=== PATIENT | female | born 1995 | race Caucasian/White ===

== ENCOUNTER 2016-04-02 13:14 | Inpatient (IN) | payer OTHER ==
[2016-04-02] MEDS ORDERED: IV START KIT ONE (13:31)
[2016-04-02] MEDS ORDERED: LIDOCAINE 1% (PRES FREE) 30 ML VIAL ONE (13:31)
[2016-04-02] MEDS ORDERED: SODIUM CHLORIDE 0.9% FLUSH 10 ML ONE (13:31)
[2016-04-02] MEDS ORDERED: OXYTOCIN 10 UNITS/ML VIAL ONE (13:31)
[2016-04-02] MEDS ORDERED: MINERAL OIL 25 ML BOT ONE (13:31)
[2016-04-02] MEDS ORDERED: LIDOCAINE Viscous 2% 15 ML UDCUP ONE (13:31)
[2016-04-02] MEDS ORDERED: PUMP TUBING ONE (13:32)
[2016-04-02] MEDS ORDERED: OXYTOCIN IN LR 500 ML IV ONE ×3 (13:32→15:59)
[2016-04-02] MEDS ORDERED: LACTATED RINGERS 1,000 ML IV PRN ×2 (13:41→15:59)
[2016-04-02 15:20] VITALS: BMI 35.5
[2016-04-02] MEDS ORDERED: DOCUSATE SODIUM 100 MG CAPSULE PO PRN (15:59)
[2016-04-02] MEDS ORDERED: CALCIUM CARBONATE 500 MG TAB.CHEW PO PRN (15:59)
[2016-04-02] MEDS ORDERED: LANOLIN 50 APPLIC/7G TUBE TP PRN (15:59)
[2016-04-02] MEDS ORDERED: BENZOCAINE/MENTHOL 60 APPLIC/BOT TP PRN (15:59)
[2016-04-02] MEDS ORDERED: MAGNESIUM HYDROXIDE 30 ML UDCUP PO PRN (15:59)
[2016-04-02 16:21] LABS: HEMATOCRIT 33.5 % (37.0-47.0); HEMOGLOBIN 10.5 gm/l (12.0-16.0); MEAN CELL VOLUME 76.7 fl (81.0-99.0); MEAN CORPUSCULAR HGB CONC 31.3 g/dl (33.0-37.0); RED CELL DISTRIBUTION WIDTH 15.7 % (11.5-14.5)
[2016-04-02] MEDS: IBUPROFEN 800 MG TABLET PO SCH (18:08)
--- NOTE | 2016-04-02 18:37 | PCMAN ---
OB Admission Note - History : 2 Term: 1 : 0 Abortions (S&E): 0 Livin EDC:: 04/10/16 Gestational Age (weeks): 38 Days (#/7): 5 Admit Cervical Dilation:: 9 Admit Cervical Effacement (%):: 100 Admit Station:: -1 Admit Presentaton:: vertex Membrane Status: Intact Labor Onset (Date): 04/02/16 Labor Onset (Time): 09:00 Contractions: Yes Contraction Frequency:: 2 Status:: cat. I EFW:: 8lbs Summary of Course:: Onset to care at 10wks x 9 visits. TWG 16lbs. Complicated by PUPPS and Eczema. Hx with advance dilation on admit followed by prolonged second stage and PPH. Notified at [facility] that patient was enroute with regular painful contractions q 2- 3min. Desires unmedicated . - Labs Blood Type: A (+) positive Hct/Hgb:: 9.6 Rubella Status: Immune GBS Status: Negative - Review of Systems ROS neg, brief due to anticipated precipitous - Physical Exam General: Moderate Distress (active labor, 9cm) Lungs: Clear to Auscultation Bilaterally Cardiovascular: Regular Rate and Rhythm - Problems (1) Active labor at term Status: Acute Code: [id number] Assessment/Plan: Note late due to direct patient care, admit note delayed due to eminent delivery. A: with IUP at 38w6d Active labor, eminent membranes intact FHT cat. I GBS neg P: Admit ot [facility], saline lock and labs per hx PPH, and anticipate
--- NOTE | 2016-04-02 19:15 | PCMDEL ---
Delivery Note - Labor 1st stage (hr/min):: 4h45m 2nd stage (hr/min):: 0h4m 3rd stage (hr/min):: 0h5m Total (hr/min):: 4h54m Pushed (hr/min):: 0h4m - Delivery Delivery (Date): 04/02/16 Delivery (Time): 13:49 Gender: Male Weight: 8 lb 9 oz Length: 1 ft 9.5 in Position: OA Umbilical Cord: 3 Vessel Delayed Cord Clamping:: > 3 min 1 Minute Total: 9 5 Minute Total: 9 Placenta:: spontaneous, intact, juan, 3vc EBL:: 100ml Perineum:: intact Suture:: none Anesthesia/Meds:: none Length ROM:: 0h2m Comments:: Jillian arrived in active labor at 9cm, shortly followed by SROM for clear fluid, and within 2 contractions achieved of vigorous male over intact perineum. placed skin to skin for bonding and drying. Delayed cord clamping until cessation of pulsations, cord cut by FOB. AMTSL with IV pitocin initiated. Spontaneous delivery of intact placenta, juan, 3vc. Fundus firm midline at U. Hemostasis achieved. [id number]. mom and baby stable.
[2016-04-02] MEDS: HYDROCODONE/ACETAMINOPHEN 5/325MG TABLET PO PRN (20:00)
[2016-04-03] MEDS: IBUPROFEN 800 MG TABLET PO SCH ×4 (00:01→17:19)
[2016-04-03] MEDS: HYDROCODONE/ACETAMINOPHEN 5/325MG TABLET PO PRN (02:52)
[2016-04-03 06:18] LABS: HEMATOCRIT 29.8 % (37.0-47.0); HEMOGLOBIN 9.5 gm/l (12.0-16.0)
--- NOTE | 2016-04-03 10:00 | PDOC44 ---
- Subjective Day: 1 Patient is feeling well. She reports that BF is going well - occasionally the baby will clamp down on the tip of the nipple. SWe discussed ways to minimize this pain and encourage good latch. She is pleased with how quickly her went. She deisre to stay one more night to get support. Pain is controlled with current medications. Is taking ibuprofen and [place]. Last [place] was taken last night. Encouraged use of stool softeners when taking narcotics. Reports minimal bleeding. She expresses a need for a carseat. Reports Flatus, Reports Pain Tolerable, Reports , Reports Lochia Light, Reports Tolerating Regular Diet - Objective Temp Pulse Resp BP Pulse Ox 97.9 F 78 16 134/74 04/03/16 07:50 04/03/16 07:50 04/03/16 07:50 04/03/16 07:50 Lab Results 04/03/16 04/02/16 05:15 Unknown WBC 12.6 H RBC 4.37 Hgb 9.5 L 10.5 L Hct 29.8 L 33.5 L Plt Count 233 04/02/16 Unknown MCV 76.7 L MCH 24.0 L MCHC 31.3 L RDW 15.7 H Current Medications Generic Name Dose Route Start Last Admin Trade Name Freq PRN Reason Stop Dose Admin Acetaminophen/Hydrocodone Bitart 1 - 2 tab 04/02/16 15:59 04/03/16 02:52 New [place] 5/325 PO 1 tab Q4H PRN Administration Pain (Moderate) Benzocaine/Menthol 1 applic 04/02/16 15:59 Dermoplast TP PRN PRN Patient Comfort Calcium Carbonate/Glycine 500 - 1,000 mg 04/02/16 15:59 Tums PO BID PRN Indigestion Docusate Sodium 100 mg 04/02/16 15:59 Colace PO DAILY PRN Comfort Emollient Ointment 1 applic 04/02/16 15:59 [id number] TP PRN PRN sore nipples Lactated Ringer's 1,000 mls @ 100 mls/hr 04/02/16 15:59 Lactated Ringers IV .Q10H PRN Titrate per clinical situation Ibuprofen 800 mg 04/02/16 15:59 04/03/16 06:06 Motrin PO 800 mg Q6H MAKENZIE Administration Magnesium Hydroxide 30 ml 04/02/16 15:59 Milk Of Magnesia PO BEDTIME PRN Constipation - Physical Exam General: Afebrile Psych/Mental Status: Mood/Affect Appropriate, Judgment/Insight Intact, Bonding Well Neurological: Grossly Intact, Alert, Oriented x 4 HEENT: Atraumatic Lungs: Clear to Auscultation Bilaterally, Normal Air Movement Cardiovascular: Regular Rate and Rhythm, Normal S1, Normal S2 Breast: Soft, Skin intact, Nipples Intact Fundus: Firm, Below Umbilicus Genitourinary: Normal Female Genitalia Lochia: Light Rectal Exam: Deferred Extremities: Full ROM Skin: Normal Color - Problems:Assessment/Plan (1) care following vaginal delivery Status: Acute Assessment/Plan: A: PPday 1 Normal PP recovery Needs a carseat exclusively Anemia P: Anticipate DC to home care tomorrow. RN and support for latch. SW consult done, carseat to be given before discharge PO iron BID to be taken without milk or other food Disposition: Anticipate DC Home Tomorrow
[2016-04-03] MEDS: FERROUS GLUCONATE (38 Fe) 324 MG TABLET PO SCH (21:32)
[2016-04-04] MEDS: IBUPROFEN 800 MG TABLET PO SCH ×3 (01:12→10:22)
[2016-04-04 09:19] VITALS: BP 130/69
[2016-04-04] MEDS: FERROUS GLUCONATE (38 Fe) 324 MG TABLET PO SCH (10:22)
== END 2016-04-04 12:19 | disposition home or self-care (01) | DRG 775 ==
LOC: FBCOUT 13:14 → FBC 13:16 → FBCOUT 13:31 → FBC 13:31
PROVIDERS: ADMIT Advanced Practice Midwife; ATTEND Advanced Practice Midwife
PROC: 10E0XZZ Delivery of Products of Conception, External Approach (ICD-10-PCS; principal; 2016-04-02)
DX: O62.3 Precipitate labor (principal); O90.81 Anemia of the puerperium; Z3A.38 38 weeks gestation of pregnancy; Z37.0 Single live birth